=== PATIENT | female | born 1955 | race Caucasian/White ===

== ENCOUNTER → 2016-03-17 | Outpatient (CLI) | payer BC ==
--- NOTE | 2016-03-17 16:19 | MR ---
MRI of the Brain (Without Contrast) History: Left temporal severe pain., R 51 Technique: T1-weighted images were acquired axially and sagittally from the foramen magnum to the ve rtex. Axial fast inversion recovery, fast T2-weighted, GRE and diffusion-weighted axial images were obtained without contrast. Findings: There are a few bilateral, scattered T2 isovolumic weighted foci of white matter hyperinten sity in the deep and subcortical white matter of each supratentorial hemisphere, consistent with typi dalton microvascular ischemic change of in nature often seen in middle-aged and elderly patients, often hypertension or diabetic patients. None are bright on the diffusion study or demonstrate hemorrhage o n the gradient sequence. The ventricles, cisterns, and sulci are normal without atrophy, hydrocephalus, midline shift, herniat ion, or epidural/subdural hematomas. No intracranial hemorrhage or masses. Diffusion-weighted sequenc e demonstrates no acute infarct. Cerebellar tonsils are in normal position. Pituitary gland is normal in size. Normal signal flow-void in the superior sagittal sinus, basilar artery, and bilateral inter nal carotid arteries indicating patency. Paranasal sinuses and mastoid air cells are clear. Incidenta lly noted is a reversed upper cervical curvature. The left temporomandibular joint meniscus is anteri emre displaced compared to the mandibular condyle, suggesting temporomandibular joint dysfunction.. Impression: 1. Brain normal for age. Is this patient hypertensive? 2. Might the patient's symptoms related to her temporomandibular joint or referred from the cervical spine? Results discussed with Dr. Kelly, as requested, at 415 p.m.
== END ==
LOC: FIMAGING 12:28
PROVIDERS: ATTEND Internal Medicine
DX: R51 Headache (principal)

== ENCOUNTER → 2016-04-10 | Outpatient (CLI) | payer BC | LOC: FIMAGING 15:23 | PROVIDERS: ATTEND Internal Medicine | DX: N64.4 Mastodynia (principal) ==

== ENCOUNTER → 2016-11-02 | Outpatient (CLI) | payer BC, OTHER | LOC: CIMAGING 07:02 | PROVIDERS: ATTEND Internal Medicine | DX: R10.12 Left upper quadrant pain (principal) | CPT/HCPCS: 76700-PO ==

== ENCOUNTER → 2016-11-15 | Outpatient (CLI) | payer BC, OTHER | LOC: FIMAGING 09:50 | PROVIDERS: ATTEND Internal Medicine | DX: Z12.31 Encounter for screening mammogram for malignant neoplasm of breast (principal) | CPT/HCPCS: G0202 ==

== ENCOUNTER → 2017-12-19 | Outpatient (CLI) | payer OTHER | LOC: FIMAGING 14:54 | PROVIDERS: ATTEND Internal Medicine | DX: Z12.31 Encounter for screening mammogram for malignant neoplasm of breast (principal) ==

== ENCOUNTER → 2018-01-04 | Outpatient (CLI) | payer OTHER | LOC: FIMAGING 10:31 | PROVIDERS: ATTEND Internal Medicine | DX: R19.01 Right upper quadrant abdominal swelling, mass and lump (principal) ==

== ENCOUNTER → 2018-05-08 | Outpatient (CLI) | payer OTHER | LOC: FIMAGING 10:51 | PROVIDERS: ATTEND Internal Medicine | DX: I10 Essential (primary) hypertension (principal); Z82.49 Family history of ischemic heart disease and other diseases of the circulatory system ==

== ENCOUNTER → 2018-07-26 | Outpatient (CLI) | payer OTHER | LOC: FIMAGING 15:54 ==